=== PATIENT | male | born 1950 | race Caucasian/White ===

== ENCOUNTER 2024-12-09 06:27 | Day surgery (SDC) | payer OTHER ==
[2024-11-28 12:21] LABS: Specific Gravity 1.017 (1.005-1.030); Urine Bilirubin NEGATIVE (Negative); Urine Blood Negative (Negative); Urine Clarity Clear (Clear); Urine Color Light-Yellow (Yellow); Urine Culture Reflex Order REFLEXED; Urine Glucose NEGATIVE (Negative); Urine Ketones NEGATIVE (Negative); Urine Microscopic Reflex YN NO UMIC; Urine Nitrite NEGATIVE (Negative); Urine Protein NEGATIVE (Negative); Urine Urobilinogen Normal (Normal)
[2024-11-28 12:29] LABS: Protime INR 0.96
--- NOTE | 2024-11-28 13:13 | RAD REPORT ---
EXAMINATION: TWO VIEW CHEST XR CLINICAL INDICATION: Male, 74 years old. [facility] Pre-op pending spaceoar gel. Hypertension TECHNIQUE: 2 view radiographs of the chest were performed. COMPARISON: No prior exam. FINDINGS: The lungs are well inflated and clear. No pneumothorax or sizable effusion. The heart is normal in si ze. Mediastinal contours are unremarkable. IMPRESSION: No acute or significant abnormalities.
--- NOTE | 2024-12-01 12:18 | EKG ---
Test Date: 2024-11-28 Test Time: 12:04:01 [employer]: [place] MEASUREMENT RESULTS: Intervals: Rate: 57 MA: 166 QRSD: 100 QT: 406 QTc: 395 [place]: P: 39 MA: 166 QRS: -87 T: 23 INTERPRETIVE STATEMENTS: Sinus bradycardia Low voltage QRS Incomplete right bundle branch block Left anterior fascicular block Abnormal ECG No previous ECG available for comparison Electronically Signed On 12-01-24 12:10:11 CDT by Yandel Sutton
[2024-12-09] MEDS ORDERED: SUCCINYLCHOLINE 20 MG/ML (10 ML) IV ONE (07:10)
[2024-12-09] MEDS ORDERED: SUGAMMADEX SODIUM 200 MG/2 ML VIAL IV ONE (07:10)
[2024-12-09] MEDS ORDERED: propofoL 200 MG/20 ML VIAL IV ONE (07:13)
[2024-12-09] MEDS ORDERED: FENTANYL CITR 100 MCG/2 ML ONE (07:13)
[2024-12-09] MEDS ORDERED: ONDANSETRON 4 MG/2 ML VIAL ONE (07:13)
[2024-12-09] MEDS: Ringers Lactate 1,000 ML IV ONE (07:29)
[2024-12-09] MEDS ORDERED: dexAMETHasone 10 MG/ML VIAL ONE (07:38)
[2024-12-09] MEDS ORDERED: EPHEDRINE SULF 50 MG/ML VIAL ONE (07:38)
[2024-12-09] MEDS: CEFAZOLIN SODIUM 2 GM/VIAL ONE (07:40)
--- NOTE | 2024-12-09 08:58 | P.OP ---
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 He was counseled on treatment options and ultimately elected to proceed with radiation therapy plus androgen deprivation therapy. He presents today for SpaceOAR gel application and fiducial markers to guide radiation therapeutic management. Procedure note: The patient was consented in the preoperative holding area before being transferred to the operative suite where general anesthesia was induced. He was given Ancef 2 g IV antimicrobial prophylaxis, and pneumoboots were provided for DVT prophylaxis. He was placed in the high lithotomy position, padded and secured to the table appropriately. The transrectal ultrasound probe was placed via his anus into his rectum with ease, and a stepper device was used to hold the probe in optimal position where visualization could be demonstrated from the perineal region all the way to the base at the seminal vesicles. His perineal region was prepped with Betadine. The case was begun by angling the scope to the right lateral aspect of the prostate where I placed the first fiducial marker via the perineum very peripherally within the mid aspect of the prostate when measured from apex to base. I then turned the ultrasound probe to the patient's left side where again I targeted the mid zone of the prostate anteriorly, and this time I placed a second fiducial marker not quite as peripherally/laterally as the one placed on the right side. Once this was successfully placed, I then turned the scope back toward the midline and identified the white stripe of the fat plane between the base of the prostate and the rectum. There was a slight elevation of the rectal hump which was visualized. I navigated the SpaceOAR needle which had been primed with saline via a 10 cc syringe through the skin of the perineum and over the rectal hump into the space beneath Dennonvillier's fascia, and the prerectal fat plane. I was then able to navigated through that plane without obvious entry into the rectum all the way to the mid base of the prostate. I confirmed localization of the needle tip within the midline with axial imaging before aspirating and co nfirming the absence of any blood or succus and then injecting a bolus of saline watching it distribute through the fat plane appropriately. This bolus was confirmed in the sagittal plane as well before I then the needle from the saline syringe and connected the SpaceOAR gel components to the needle and then injected the SpaceOAR gel using continuous low-pressure, filling the area and creating a buffer between the base/peripheral zone of the prostate and the rectum. This buffer zone was demonstrable mostly within the base and mid gland but it did seem to extend to the apex somewhat. With the elevated rectal hump observed, simulation with radiation oncology will determine if additional spacing was required at the apex ultimately. I then remove the needle and the ultrasound probe before cleansing the Betadine from his skin and taking him out of the lithotomy position. He was then awakened from general anesthesia before being transferred to a stretcher. He was then transferred to the recovery room in good condition. Complications: None Discharge disposition: He may begin simulation for radiation treatment with the radiation oncologist accordingly. Subsequent follow-up should be established with me in approximately 6 to 9 months, or 3 to 6 months following completion of radiation therapy.
[2024-12-09 10:45] VITALS: BP 114/75; TEMP 97.7; O2SAT 95
== END 2024-12-09 09:30 | disposition home or self-care (01) ==
LOC: OR 06:27
PROVIDERS: ATTEND Urology
PROC: 0VH43YZ Insertion of Other Device into Prostate and Seminal Vesicles, Percutaneous Approach (ICD-10-PCS; principal; 2024-12-09 07:30)
DX: C61 Malignant neoplasm of prostate (principal)
CPT/HCPCS: 93005; 87088; 87086; 36415; 85610; 81003; 71046; 55874; J2704; J3010; J1100; J2405; J7120